=== PATIENT | male | born 1935 | race Caucasian/White ===

== ENCOUNTER → 2019-02-18 | Outpatient (REF) | payer MEDICARE, BC | LOC: M LAB LCGH 12:27 | PROVIDERS: ATTEND Physician Assistant | DX: L85.8 Other specified epidermal thickening (principal) ==

== ENCOUNTER 2022-02-18 06:58 | Day surgery (SDC) | payer MEDICARE ==
[~2022-02-18] VITALS: Ht 175.3 cm; Wt 98.9 kg
[~2022-02-18 06:58] MED LIST: ATOR40TA75 PO; ECOT81TA5 PO; FINA5TAB2 PO; FLUO20CA22 PO; FOLI1TAB11 PO; GABA-1171 PO; LOSA25TA13 PO; METH2.5T48 PO; METO1TAB87 PO; WARF-21 PO
[2022-02-18] MEDS ORDERED: BUPIVACAINE HCL 0.25% 30ML VIAL As Ordered ONE (07:18)
[2022-02-18] MEDS ORDERED: LR 1,000 ML IV SCH ×2 (07:30→09:35)
[2022-02-18] MEDS ORDERED: propofoL 200 MG/20 ML VIAL As Ordered ONE (08:37)
[2022-02-18] MEDS ORDERED: ONDANSETRON 4MG 2ML VIAL As Ordered ONE (08:37)
[2022-02-18] MEDS ORDERED: LIDOCAINE 2% 100MG/5ML SDV (FOR ANES.) As Ordered ONE (08:37)
[2022-02-18] MEDS ORDERED: KETOROLAC 60MG 2ML VIAL As Ordered ONE (08:37)
[2022-02-18] MEDS ORDERED: fentaNYL 100 MCG/2 ML INJECTION As Ordered ONE (08:37)
[2022-02-18] MEDS ORDERED: dexameTHASONE 4 MG/ML 1ML VIAL (J1100 PER 1MG) As Ordered ONE (08:37)
[2022-02-18] MEDS ORDERED: BACITRACIN OINTMENT 30GM TUBE As Ordered ONE (08:39)
[2022-02-18] MEDS ORDERED: fentaNYL 100 MCG/2 ML INJECTION IV PRN (09:35)
[2022-02-18] MEDS ORDERED: oxyCODONE 5MG TAB PO PRN (09:35)
[2022-02-18] MEDS ORDERED: ONDANSETRON 4MG 2ML VIAL IV PRN (09:35)
[2022-02-18 11:00] VITALS: BP 144/77
== END 2022-02-18 11:12 | disposition home or self-care (01) ==
LOC: M SDC 06:58
PROVIDERS: ATTEND Orthopaedic Surgery Hand Surgery
DX: G56.01 Carpal tunnel syndrome, right upper limb (principal); I10 Essential (primary) hypertension; E78.5 Hyperlipidemia, unspecified; M06.9 Rheumatoid arthritis, unspecified; I48.91 Unspecified atrial fibrillation; Z98.61 Coronary angioplasty status; N40.0 Benign prostatic hyperplasia without lower urinary tract symptoms; Z92.21 Personal history of antineoplastic chemotherapy; Z79.01 Long term (current) use of anticoagulants; Z79.899 Other long term (current) drug therapy; Z88.2 Allergy status to sulfonamides; Z87.891 Personal history of nicotine dependence; Z95.818 Presence of other cardiac implants and grafts
CPT/HCPCS: 64721; J1100; J1885; J2405; J3010